=== PATIENT | male | born 1980 | race Two or more races ===

== ENCOUNTER 2019-02-24 15:23 | Emergency (ER) | payer SELFPAY ==
[~2019-02-24] VITALS: Ht 180.3 cm; Wt 61.2 kg
[2019-02-24] MEDS ORDERED: IV NORMAL SALINE 1000ML BAG 1,000 ML IV SCH (15:58)
[2019-02-24] MEDS ORDERED: ONDANSETRON PF 4 MG/2 ML VIAL. IV ONE (16:00)
[2019-02-24 16:08] LABS: BASO # 0.1 x10^3/uL (0.0-0.2); BASO % 0 % (0-3); BILIRUBIN,URINE SMALL (NEG); CLARITY,URINE CLEAR; COLOR,URINE YELLOW; EOS % 0 % (0-3); HEMATOCRIT 41.2 % (39.0-53.0); HEMOGLOBIN 13.7 g/dL (13.0-17.5); LYMPH # 1.4 x10^3/uL (1.0-4.8); LYMPH % 8 % (24-48); MEAN CORPUSCULAR HEMOGLOBIN 32 pg (25-35); MEAN CORPUSCULAR HGB CONC 33 g/dL (31-37); MEAN CORPUSCULAR VOLUME 96 fL (79-100); MONO # 0.9 x10^3/uL (0.0-1.1); MONO % 5 % (0-9); NEUT # 15.3 x10^3uL (1.8-7.7); NEUT % 86 % (31-73); NITRITE,URINE NEGATIVE (NEG); PLATELET COUNT 295 x10^3/uL (140-400); PROTEIN,URINE 30 mg/dL (NEG-TRACE); RED BLOOD COUNT 4.29 x10^6/uL (4.30-5.70); RED CELL DISTRIBUTION WIDTH 12.2 % (11.5-14.5); WHITE BLOOD COUNT 17.7 x10^3/uL (4.0-11.0)
[2019-02-24 16:15] LABS: AMPHETAMINE/METHAMPHETAMINE NEG (NEG); BARBITURATES NEG (NEG); BENZODIAZEPINES NEG (NEG); CANNABINOIDS POS (NEG); COCAINE NEG (NEG); METHADONE NEG (NEG); OPIATES NEG (NEG); PHENCYCLIDINE NEG (NEG)
[2019-02-24 16:16] LABS: BACTERIA,URINE 0 /HPF (0-FEW); SQUAMOUS EPITHELIAL CELL,UR OCC /LPF
[2019-02-24 16:21] LABS: CALCIUM 9.3 mg/dL (8.5-10.1); CREATININE 0.8 mg/dL (0.7-1.3); GFR 109.4; POTASSIUM 4.1 mmol/L (3.5-5.1)
[2019-02-24 16:27] LABS: ALBUMIN 4.4 g/dL (3.4-5.0); ALBUMIN/GLOBULIN RATIO 1.4 (1.0-1.7); TOTAL BILIRUBIN 2.1 mg/dL (0.2-1.0); TOTAL PROTEIN 7.5 g/dL (6.4-8.2)
--- NOTE | 2019-02-24 16:37 | RAD ---
CT Abdomen and Pelvis without contrast History: Chronic abdominal pain, history of gastroparesis, history of vagal stimulator Technique: Noncontrast CT imaging was performed of the abdomen and pelvis. Multiplanar images are reviewed. Exposure: One or more of the following individualized dose reduction techniques were utilized for this examination: 1. Automated exposure control 2. Adjustment of the mA and/or kV according to patient size 3. Use of iterative reconstruction technique. Comparison: None Findings: There is some peripheral, patchy, mild groundglass density of the lower lobes lung bases bilaterally. There is no pleural effusion. There is a lead coursing into the left upper quadrant of the abdomen. There has been cholecystectomy. There is no hydronephrosis or renal calculus. Evaluation of the abdominal visceral organs is limited without intravenous contrast, no obvious focal abnormality of the liver or spleen. Pancreas is poorly visualized, bowel in this region. Stomach is not significantly dilated. There is some variable retained stool in the colon, limited evaluation of bowel without oral contrast. No free air or significant free fluid is identified. Appendix cannot be confidently identified. Impression: 1. Appendix cannot be confidently identified. There is variable retained stool in the colon. Stomach is not significantly dilated. 2. There is some peripheral, patchy, mild groundglass density of the lower lobes near lung bases which may be due to degree of atelectasis or inflammatory change. Electronically signed by: Live Doll MD (02/24/2019 4:34 PM) [email or web address]
--- NOTE | 2019-02-24 17:08 | PHYS DOC ---
Past Medical History Past Medical History: Diabetes-Type I Additional Past Medical Histor: GASTROPORESIS, BLIND Past Surgical History: Other Additional Past Surgical Histo: ABDOMINAL SURGERIES, VAGAL STIMULATOR Alcohol Use: None Drug Use: Marijuana Adult General Chief Complaint Chief Complaint: ABDOMINAL PAIN [facility] HPI Patient is a 38 year old male with history of type 1 diabetes mellitus on insulin pump and legally blind as a complication of diabetes mellitus who presents with complaint of abdominal pain. Patient is a [place] speaking and history was taking with help of her stepdaughter and girlfriend and patient refused saw maker. Patient complaining of generalized abdominal pain for 4 years and he states since yesterday he has a constant generalized abdominal pain as a sharp pain without radiation. Patient complaining of chronic constipation and complaining of multiple episodes of nausea and vomiting since yesterday without fever and chills. Patient states he takes his insulin without checking his blood sugar. Patient is a resident of [place] and visiting his girlfriend in this area and a states he forgot to bring Percocet 10 mg that he used to take 4 pills a day and did not take any medication for the last 4 days. The patient denies anorexia, fever and chills, chest pain, focal neuro deficit. Review of Systems Review of Systems Constitutional: Denies fever or chills [] Eyes: Denies change in visual acuity, redness, or eye pain [] HENT: Denies nasal congestion or sore throat [] Respiratory: Denies cough or shortness of breath [] Cardiovascular: No additional information not addressed in HPI [] GI: Reports abdominal pain, nausea, vomiting, constipation, denies bloody stools or diarrhea [] : Denies dysuria or hematuria [] Musculoskeletal: Denies back pain or joint pain [] Integument: Denies rash or skin lesions [] Neurologic: Denies headache, focal weakness or sensory changes [] Endocrine: Denies polyuria or polydipsia [] All other systems were reviewed and found to be within normal limits, except as documented in this note. Current Medications Current Medications Current Medications Medications (Trade) Dose Ordered Sig/Arya Start Time Stop Time Status Last Admin Dose Admin Morphine Sulfate (Morphine Sulfate) 4 mg 1X ONCE 02/24/19 17:15 02/24/19 17:16 DC 02/24/19 16:52 4 MG Ondansetron HCl (Zofran) 4 mg 1X ONCE 02/24/19 16:00 02/24/19 16:06 DC 02/24/19 16:30 4 MG Sodium Chloride 1,000 ml @ 1,000 mls/hr Q1H 02/24/19 15:58 02/24/19 16:57 DC 02/24/19 16:30 1,000 MLS/HR Allergies Allergies Allergies Coded Allergies Type Severity Reaction Last Updated Verified No Known Drug Allergies 02/24/19 No Physical Exam Physical Exam Constitutional: Well nourished, mild distress, non-toxic appearance. [] HENT: Normocephalic, atraumatic, bilateral external ears normal, oropharynx moist, no oral exudates, nose normal. [] Eyes: PERRLA, EOMI, conjunctiva normal, no discharge. [] Neck: Normal range of motion, no tenderness, supple, no stridor. [] Cardiovascular:Heart rate regular rhythm, no murmur [] Lungs & Thorax: Bilateral breath sounds clear to auscultation [] Abdomen: Bowel sounds normal, soft, no tenderness, voluntary guarding, midline abdominal scar, no distention, no masses, no pulsatile masses. [] Skin: Warm, dry, no erythema, no rash. [] Back: No tenderness, no CVA tenderness. [] Extremities: No tenderness, no cyanosis, no clubbing, ROM intact, no edema. [] Neurologic: Alert and oriented X 3, normal motor function, normal sensory function, no focal deficits noted. [] Psychologic: Affect anxious, mood normal. [] Current Patient Data Vital Signs Vital Signs Date Time Temp Pulse Resp B/P (MAP) Pulse Ox O2 Delivery O2 Flow Rate FiO2 02/24/19 15:32 98.9 112 20 155/71 (99) 98 Room Air 98.9 Lab Values Laboratory Tests Test 02/24/19 15:50 02/24/19 15:59 Glucose (Fingerstick) 208 mg/dL (70-99) H White Blood Count 17.7 x10^3/uL (4.0-11.0) H Red Blood Count 4.29 x10^6/uL (4.30-5.70) L Hemoglobin 13.7 g/dL (13.0-17.5) Hematocrit 41.2 % (39.0-53.0) Mean Corpuscular Volume 96 fL (79-100) Mean Corpuscular Hemoglobin 32 pg (25-35) Mean Corpuscular Hemoglobin Concent 33 g/dL (31-37) Red Cell Distribution Width 12.2 % (11.5-14.5) Platelet Count 295 x10^3/uL (140-400) Neutrophils (%) (Auto) 86 % (31-73) H Lymphocytes (%) (Auto) 8 % (24-48) L Monocytes (%) (Auto) 5 % (0-9) Eosinophils (%) (Auto) 0 % (0-3) Basophils (%) (Auto) 0 % (0-3) Neutrophils # (Auto) 15.3 x10^3uL (1.8-7.7) H Lymphocytes # (Auto) 1.4 x10^3/uL (1.0-4.8) Monocytes # (Auto) 0.9 x10^3/uL (0.0-1.1) Eosinophils # (Auto) 0.0 x10^3/uL (0.0-0.7) Basophils # (Auto) 0.1 x10^3/uL (0.0-0.2) Platelet Estimate Pending Urine Color Yellow Urine Clarity Clear Urine pH 6.0 Urine Specific [place] >=1.030 Urine Protein 30 mg/dL (NEG-TRACE) Urine Glucose (UA) >=1000 mg/dL (NEG) Urine Ketones (Stick) >=80 mg/dL (NEG) Urine Blood Small (NEG) Urine Nitrite Negative (NEG) Urine Bilirubin Small (NEG) Urine Urobilinogen Dipstick 1.0 mg/dL (0.2 mg/dL) Urine Leukocyte Esterase Negative (NEG) Urine RBC 3-5 /HPF (0-2) Urine WBC 1-4 /HPF (0-4) Urine Squamous Epithelial Cells Occ /LPF Urine Bacteria 0 /HPF (0-FEW) Urine Mucus Mod /LPF Sodium Level 138 mmol/L (136-145) Potassium Level 4.1 mmol/L (3.5-5.1) Chloride Level 99 mmol/L (98-107) Carbon Dioxide Level 25 mmol/L (21-32) Anion Gap 14 (6-14) Blood Urea Nitrogen 20 mg/dL (8-26) Creatinine 0.8 mg/dL (0.7-1.3) Estimated GFR (Cockcroft-Gault) 109.4 BUN/Creatinine Ratio 25 (6-20) H Glucose Level 208 mg/dL (70-99) H Lactic Acid Level 1.8 mmol/L (0.4-2.0) Calcium Level 9.3 mg/dL (8.5-10.1) Total Bilirubin 2.1 mg/dL (0.2-1.0) H Aspartate Amino Transferase (AST) 37 U/L (15-37) Alanine Aminotransferase (ALT) 34 U/L (16-63) Alkaline Phosphatase 107 U/L (46-116) Total Protein 7.5 g/dL (6.4-8.2) Albumin 4.4 g/dL (3.4-5.0) Albumin/Globulin Ratio 1.4 (1.0-1.7) Lipase 34 U/L (73-393) L Urine Opiates Screen Neg (NEG) Urine Methadone Screen Neg (NEG) Urine Barbiturates Neg (NEG) Urine Phencyclidine Screen Neg (NEG) Urine Amphetamine/Methamphetamine Neg (NEG) Urine Benzodiazepines Screen Neg (NEG) Urine Cocaine Screen Neg (NEG) Urine Cannabinoids Screen Pos (NEG) Ethyl Alcohol Level < 10 mg/dL (0-10) Urine Ethyl Alcohol Neg (NEG) Laboratory Tests 02/24/19 15:59 Laboratory Tests 02/24/19 15:59 EKG EKG [] Radiology/Procedures Radiology/Procedures [facility] [address] [place] [address] IMAGING REPORT Signed PATIENT: SAGE FERNANDEZ ACCOUNT: [id number] : 1980 LOCATION: ER AGE: 38 SEX: M EXAM STATUS: REG ER ORD. PHYSICIAN: MELBA ALEX MD REASON: abdominal pain PROCEDURE: CT ABDOMEN PELVIS WO CONTRAST CT Abdomen and Pelvis without contrast History: Chronic abdominal pain, history of gastroparesis, history of vagal stimulator Technique: Noncontrast CT imaging was performed of the abdomen and pelvis. Multiplanar images are reviewed. Exposure: One or more of the following individualized dose reduction techniques were utilized for this examination: 1. Automated exposure control 2. Adjustment of the mA and/or kV according to patient size 3. Use of iterative reconstruction technique. Comparison: None Findings: There is some peripheral, patchy, mild groundglass density of the lower lobes lung bases bilaterally. There is no pleural effusion. There is a lead coursing into the left upper quadrant of the abdomen. There has been cholecystectomy. There is no hydronephrosis or renal calculus. Evaluation of the abdominal visceral organs is limited without intravenous contrast, no obvious focal abnormality of the liver or spleen. Pancreas is poorly visualized, bowel in this region. Stomach is not significantly dilated. There is some variable retained stool in the colon, limited evaluation of bowel without oral contrast. No free air or significant free fluid is identified. Appendix cannot be confidently identified. Impression: 1. Appendix cannot be confidently identified. There is variable retained stool in the colon. Stomach is not significantly dilated. 2. There is some peripheral, patchy, mild groundglass density of the lower lobes near lung bases which may be due to degree of atelectasis or inflammatory change. Electronically signed by: Korina Latif MD (02/24/2019 4:34 PM) [facility] DICTATED and SIGNED BY: KORINA LATIF MD DATE: 02/24/19 1634 Course & Med Decision Making Course & Med Decision Making Pertinent Labs and Imaging studies reviewed. (See chart for details) Evaluation of patient in ER showed 38-year-old male patient with history of chronic abdominal pain presented to ER because of abdominal pain after he left his medication in [place]. Patient had unremarkable physical exam except for anxiety. Blood sugar was >200 without DKA. Patient treated with IV fluid and Zofran and morphine. Labs and CT abdomen and pelvis was unremarkable except for constipation. Patient informed to take his medication from home and follow up with his primary care physician regarding chronic pain. Dragon Disclaimer Dragon Disclaimer This electronic medical record was generated, in whole or in part, using a voice recognition dictation system. Departure Departure Impression: Primary Impression: Chronic abdominal pain Additional Impressions: Diabetes mellitus Uncontrolled diabetes mellitus Tobacco abuse Tobacco abuse counseling Disposition: HOME, SELF-CARE (At 1822) Condition: IMPROVED Referrals: UNKNOWN PCP NAME (PCP) Patient Instructions: Abdominal Pain, Constipation, Adult, Hyperglycemia, Smoking Cessation, Tips For Success Additional Instructions: Drink plenty of liquids Follow-up with your primary care physician in 1 days Return to ER if not getting better Scripts Hydrocodone/Apap 5-325 (NORCO 5-325 TABLET) 1 Each Tablet 1 TAB PO PRN Q6HRS PRN for PAIN, #10 TAB 0 Refills Prov: MELBA ALEX MD 02/24/19 Problem Qualifiers Additional Impressions: Diabetes mellitus Diabetes mellitus type: type 1 Diabetes mellitus complication status: with unspecified complications Qualified Codes: E10.8 - Type 1 diabetes mellitus with unspecified complications Uncontrolled diabetes mellitus Diabetes mellitus type: type 1 Glycemic state: with hyperglycemia Qualified Codes: E10.65 - Type 1 diabetes mellitus with hyperglycemia MELBA ALEX MD Feb 24, 2019 17:08
[2019-02-24] MEDS ORDERED: MORPHINE SULFATE 4 MG/ML VIAL. IV ONE (17:15)
--- NOTE | 2019-02-24 17:26 | RAD ---
PROCEDURE: CHEST PA LATERAL CLINICAL INDICATION: ABNORMAL CT OF ABDOMEN FOR LUNG EVALUATION COMPARISON: None FINDINGS: No pneumothorax identified. Cardiac and mediastinal contours unremarkable. No pulmonary consolidation or acute airspace disease. No acute osseous abnormalities identified. IMPRESSION: No pulmonary consolidation or acute airspace disease. Electronically signed by: Romulo Flores DO (02/24/2019 5:23 PM) [facility]
[2019-02-24] MEDS ORDERED: HYDR-3164 PO (18:23)
[2019-02-24 19:00] VITALS: BP 108/70
[2019-02-24 19:04] LABS: % BANDS 4 % (0-9); % LYMPHS 6 % (24-48); % MONOS 7 % (0-10); % SEGS 83 % (35-66)
[2019-02-24 19:05] LABS: PLT ESTIMATE ADEQUATE (ADEQUATE)
== END 2019-02-24 19:04 | disposition home or self-care (01) ==
LOC: ER 15:23
DX: E10.65 Type 1 diabetes mellitus with hyperglycemia (principal); E10.69 Type 1 diabetes mellitus with other specified complication; H54.8 Legal blindness, as defined in USA; R11.2 Nausea with vomiting, unspecified; R10.84 Generalized abdominal pain; K59.00 Constipation, unspecified; G89.29 Other chronic pain; Z79.4 Long term (current) use of insulin; Z71.6 Tobacco abuse counseling
CPT/HCPCS: 36415; 71046; 74176; 80053; 80307; 81001; 82962; 83605; 83690; 85007; 85025; 96361; 96374; 96375; 99284; G0480; J2270; J2405; J7030